=== PATIENT | male | born 1950 | race Two or more races ===

== ENCOUNTER 2021-12-31 11:13 | Emergency (ER) | payer OTHER ==
[~2021-12-31] VITALS: Ht 175.3 cm; Wt 108.9 kg
[2021-12-31 11:13] VITALS: BP 0/0
[2021-12-31] MEDS ORDERED: CALCIUM CHLOR(10%) 100MG/ML 10ML SYRINGE IV ONE (11:14)
[2021-12-31] MEDS ORDERED: SODIUM BICARBONATE 8.4 % INJ 50ML VIAL IV ONE (11:14)
[2021-12-31] MEDS ORDERED: EPINEPHrine HCL 1 MG/10 ML SYRG IV ONE (11:14)
== END 2021-12-31 14:19 ==
LOC: EDBD 11:13 → ER 11:13
DX: I46.9 Cardiac arrest, cause unspecified (principal); E11.9 Type 2 diabetes mellitus without complications; I10 Essential (primary) hypertension; E78.5 Hyperlipidemia, unspecified; Z88.6 Allergy status to analgesic agent
CPT/HCPCS: 92950; 99285; J0171